=== PATIENT | male | born 1995 | race Caucasian/White ===

== ENCOUNTER 2020-07-05 22:37 | Emergency (ER) | payer BC ==
[~2020-07-05] VITALS: Ht 172.7 cm; Wt 63.6 kg
[2020-07-05 22:44] VITALS: Ht 172.7 cm; Wt 63.6 kg
[2020-07-05 23:31] LABS: UDS - AMPHET POSITIVE QUAL (NEGATIVE); UDS - BARB NEGATIVE QUAL (NEGATIVE); UDS - BENZO NEGATIVE QUAL (NEGATIVE); UDS - COCAINE NEGATIVE QUAL (NEGATIVE); UDS - OPIATE POSITIVE QUAL (NEGATIVE); UDS - PCP NEGATIVE QUAL (NEGATIVE); UDS - THC NEGATIVE QUAL (NEGATIVE)
[2020-07-05 23:33] LABS: HEMATOCRIT 42.3 % (42.0-54.0); HEMOGLOBIN 13.9 g/dL (13.5-17.5); LYMPHOCYTES 37.7 % (15-50); MCH 28.7 pg (26.0-34.0); MCHC 32.9 g/dL (31.0-37.0); MCV 87.4 fL (80.0-100.0); MEAN PLATELET VOLUME 9.5 fL (7.4-10.4); NEUTROPHILS 56.3 % (40-80); PLATELET COUNT 268 10x3/uL (130-400); RBC 4.84 10x6/uL (4.20-6.10); RDW 12.9 % (11.5-14.5); WBC 5.8 10x3/uL (4.8-10.8)
[2020-07-05 23:36] LABS: BILIRUBIN NEGATIVE (NEGATIVE); KETONE NEGATIVE (NEGATIVE); NITRITE NEGATIVE (NEGATIVE); UROBILINOGEN NORMAL mg/dL (< 2)
[2020-07-05 23:37] LABS: BACTERIA NONE SEEN HPF (NONE SEEN); SQUAMOUS EPITHELIAL 0-5 HPF (0-4); WHITE CELLS - URINE 0-5 HPF (0-1)
[2020-07-05 23:42] LABS: CALC OSMOLALITY 279 mosm/kg (275-300); CALCIUM 8.8 mg/dL (8.5-10.1); CARBON DIOXIDE 29.4 mmol/L (21.0-32.0); CHLORIDE - SERUM 103 mmol/L (98-107); GLUCOSE 77 mg/dL (74-106); POTASSIUM - SERUM 4.5 mmol/L (3.5-5.1); SODIUM 140 mmol/L (136-145); UREA NITROGEN 19 mg/dL (7-18); eGFR NON AFRICAN AMERICAN > 90 mL/min (90-120)
[2020-07-05 23:57] LABS: ALKALINE PHOSPHATASE 79 U/L (30-120); ALT (SGPT) 30 U/L (10-68); BILIRUBIN - TOTAL 0.52 mg/dL (0.2-1.3); CKMB 3.7 U/L (0.0-3.6); CREATINE KINASE 412 UL (21-232); PROTEIN - SERUM 7.1 g/dL (6.4-8.2)
[2020-07-05 23:58] LABS: TROPONIN-I < 0.017 ng/mL (0.000-0.060)
[2020-07-06 02:34] LABS: MAGNESIUM - SERUM 2.8 mg/dL (1.8-2.4)
[2020-07-06 02:39] LABS: APTT 22.9 SECONDS (22.8-39.4)
[2020-07-06 02:53] LABS: INR 1.06 (0.85-1.17); PROTIME 12.8 SECONDS (11.6-15.0)
[2020-07-06 06:10] VITALS: BP 119/83
--- NOTE | 2020-07-06 11:49 | NUR ---
DR. FERREIRA NOTIFIED AND REVIEWED PT'S BEHAVIOR AND ASSESSMENTS RESULTS. PT IS A ZERO RISK PER DR. FERREIRA. DR. FERREIRA STATED TO GIVE RESOURCES TO PT AT TIME OF DISCHARGE. NO FURTHER ORDERS AT THIS TIME. RESOUCES REVIEWED WITH PT AND HE VERBALIZIED UNDERSTANDING. PT DID SIGN SAFETY PLAN WILLINGLY AND VERBALIZIED UNDERSTANDING AT THIS TIME.
== END 2020-07-06 15:17 | disposition other institution (70) ==
LOC: D.ER 22:37
PROVIDERS: Family Medicine
DX: T40.601A Poisoning by unspecified narcotics, accidental (unintentional), initial encounter (principal); F19.10 Other psychoactive substance abuse, uncomplicated; R79.89 Other specified abnormal findings of blood chemistry